=== PATIENT | female | born 2000 ===

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

== ENCOUNTER 2024-02-12 14:56 | Emergency (ER) | payer OTHER, SELFPAY ==
--- NOTE | ~2024-02-12 | XR_ITS ---
EXAMINATION: XR ANKLE, LEFT XR FOOT, LEFT CLINICAL INFORMATION: Pain after rolling ankle; question fracture. COMPARISON: None available. TECHNIQUE: AP, lateral, and mortise views of the left ankle. AP, lateral, and oblique views of the left foot. FINDINGS: Bony alignment and mineralization are normal. The ankle mortise is intact. No fracture or dislocation is seen. Boehler's angle is normal. There is no calcaneal spur. There is moderate soft tissue swelling, most pronounced adjacent to the lateral malleolus. XR/XR ankle LT min 3V IMPRESSION: 1. No fracture, dislocation or unusual degenerative change is seen. 2. There is moderate soft tissue swelling, most pronounced adjacent to the lateral malleolus. Electronically signed by: Bryan Edwards MD 02/12/2024 03:45 PM [facility]
--- NOTE | ~2024-02-12 | XR_ITS ---
EXAMINATION: XR ANKLE, LEFT XR FOOT, LEFT CLINICAL INFORMATION: Pain after rolling ankle; question fracture. COMPARISON: None available. TECHNIQUE: AP, lateral, and mortise views of the left ankle. AP, lateral, and oblique views of the left foot. FINDINGS: Bony alignment and mineralization are normal. The ankle mortise is intact. No fracture or dislocation is seen. Boehler's angle is normal. There is no calcaneal spur. There is moderate soft tissue swelling, most pronounced adjacent to the lateral malleolus. XR/XR foot LT 2V IMPRESSION: 1. No fracture, dislocation or unusual degenerative change is seen. 2. There is moderate soft tissue swelling, most pronounced adjacent to the lateral malleolus. Electronically signed by: Bryan Edwards MD 02/12/2024 03:45 PM [facility]
[2024-02-12 14:58] VITALS: BP 116/64; PULSE 78; RESP 16; TEMP 36.9; O2SAT 99; BMI 28.7
--- NOTE | 2024-02-12 15:02 | ED.GENADULT ---
HPI - General Adult General Chief complaint: Fall Stated complaint: lt ankle pain Time Seen by Provider: 02/12/24 15:18 Source: patient, RN notes reviewed and old records reviewed Mode of arrival: ambulatory History of Present Illness ED Provider: eMlita Arredondo PA-C [facility] narrative: 31-year-old female with no significant past medical history presenting to ED complaining of left ankle pain and swelling s/p slipping down 3 stairs [employer]. Reports twisting ankle and falling to ground, denies head trauma or LOC. has been ambulatory with pain since incident. Denies numbness, tingling, weakness, injury to other area Related Data Previous Rx's ?Medication ?Instructions ?Recorded ondansetron HCl 4 mg tablet 4 mg PO Q8H PRN nausea and 09/30/20 (Zofran) vomiting #10 tabs nqegpvf-oqcatioevhirq-gtfleyvw 250 1 tab PO Q4-6H PRN pain #14 tabs 12/24/20 mg-250 mg-65 mg tablet (Excedrin Extra Strength) diphenhydramine HCl 25 mg tablet 50 mg (2 x 25 mg) PO TID PRN 12/24/20 (Benadryl Allergy) nausea and vomiting #14 tabs metoclopramide HCl 10 mg tablet 10 mg PO Q6H PRN nausea and 12/24/20 (Reglan) vomiting #14 tabs azithromycin 250 mg tablet See Rx Instructions PO .COMPLEX #6 07/31/21 tabs Allergies Allergy/AdvReac Type Severity Reaction Status Date / Time No Known Allergies Allergy Verified 02/12/24 15:00 [No Known Allergies*] Review of Systems Review of Systems: Yes all other systems are reviewed and are negative Constitutional: Constitutional: Reports as per [facility] Past Medical History Attestation statement: The following information was validated with the patient. Source: old records reviewed Medical History Pre-eclampsia Social History Social History Alcohol intake: never Patient Tobacco Use Status: Never used Tobacco Advance Directives: No Advance Directives Information Provided: No Physical Exam ED Vital Signs: Vital Signs - 24 hr 02/12/24 14:58 02/12/24 16:15 02/12/24 16:21 Temperature 98.4 F 98.2 F 98.2 F Pulse Rate 78 76 76 Respiratory Rate 16 16 16 Blood Pressure 116/64 112/68 112/68 Pulse Oximetry 99 99 99 Oxygen Delivery Method Room Air Room Air Room Air BMI result Body Mass Index 28.7 Const General: cooperative, healthy appearing and no acute distress Orientation/consciousness: patient oriented x3 Limitations: no limitations HENMT Head: Yes normal to inspection and Yes atraumatic Ears: hearing grossly normal bilaterally General nose exam: Normal external nose present Face and sinus: Yes normal facial exam Eyes General: appearance normal, both eyes and all related structures EOM: EOMs intact bilaterally Neck Neck: Yes normal visual inspection and Yes no meningeal signs Resp Effort & Inspection: normal respiratory effort and no respiratory distress Cardio Rate: regular rate Skin Rashes: no rashes Wounds: no wounds Neuro General: patient oriented x3, tone normal and no meningeal signs Cranial nerves: Yes CN's II-XII intact bilaterally Gait exam (Neuro): Normal gait present Extrem Other: left ankle with lateral malleolar swelling. Diffusely tender to palpation. Limited ROM secondary to pain. Neurovascularly intact distally. No erythema/ warmth or crepitus. Knee nontender. Course Course Course Narrative: RME; 23-year-old female presents to the ED for falling down stairs and rolling ankle. patient states no head truama or loss of conscisouiness. xrays ordered 1555--XR ankle LT min 3V/XR foot LT 2V IMPRESSION: 1. No fracture, dislocation or unusual degenerative change is seen. 2. There is moderate soft tissue swelling, most pronounced adjacent to the lateral malleolus. >Aircast and crutches supplied. Results discussed with patient including worrisome signs and symptoms and strict return precautions, and when to return to the emergency department. They verbalized understanding and feel safe for discharge at this time. Medical Decision Making Medical Decision Making MDM Narrative: 31-year-old female with no significant past medical history presenting to ED complaining of left ankle pain and swelling s/p slipping down 3 stairs [employer]. On exam vital signs stable, NAD, nontoxic appearing, physical exam as noted above. Concern for sprain vs fracture. No evidence of septic joint / arthritis. Plan: X-rays Please refer to course for remaining clinical decision making, interpretation of labs/imaging results, and discussions with consultants and/or family members. Differential Diagnosis Differential Diagnoses: The differential diagnosis associated with the presentation includes As above Independent Interpretation I performed an independent interpretation of an: Plain X-Ray Radiology Impression Discussion of test interpretation with radiology: I have reviewed the radiologist's reading. External Record Review External record reviewed: Inpatient record, Office record, Outpatient record, Prior outpatient labs, Prior outpatient radiology, Primary care record and Outside ED record Tests considered The following testing was considered but not selected: As above Prescription Management I considered prescription management with: Pain Medication Social Determinants Patient?s care significantly limited by Social Determinants of Health including: Other Social Determinant of Health Discharge Plan Discharge Clinical Impression: Ankle sprain Patient Disposition: Home, Self-Care Instructions: Ankle Sprain (DC) Additional Instructions: you sprained her ankle. No fracture/break Wear Aircast for comfort and stability. Use crutches as needed. Bear weight as tolerated Ice and elevate take Tylenol and Motrin for pain/swelling Follow-up with your doctor If symptoms persist or worsen her pain is unbearable return to the emergency department Prescriptions: No Action ondansetron HCl [Zofran] 4 mg tablet 4 mg PO Q8H PRN (Reason: nausea and vomiting) Qty: 10 0RF metoclopramide HCl [Reglan] 10 mg tablet 10 mg PO Q6H PRN (Reason: nausea and vomiting) Qty: 14 0RF diphenhydramine HCl [Benadryl Allergy] 25 mg tablet 50 mg PO TID PRN (Reason: nausea and vomiting) Qty: 14 0RF Excedrin Extra Strength 250-250-65 mg tablet 1 tab PO Q4-6H PRN (Reason: pain) Qty: 14 0RF azithromycin 250 mg tablet See Rx Instructions PO .COMPLEX Qty: 6 0RF Rx Instructions: take 500 mg today (day 1), then 250 mg for 4 days (days 2-5) Referrals: [facility] [Primary Care Provider] - 5 days Stand Alone Forms: Work/School Release Interventions: ED Discharge Assessment Last Done: 02/12/24 16:21 Discharge Date/Time: 02/12/24 16:22 Print Language: Bermudian
--- NOTE | 2024-02-12 16:12 | MHC.EDTECH ---
At providers request this tech applied air cast to left ankle, and provided crutch training. Patient tolerated cast well.
[2024-02-12 16:15] VITALS: BP 112/68; PULSE 76; RESP 16; TEMP 36.8; O2SAT 99
--- NOTE | 2024-02-12 16:16 | PC.NURSE ---
xrays performed, air cast applied, crutch training performed, pt ambulatory with steady gait. vss
[2024-02-12 16:21] VITALS: BP 112/68; PULSE 76; RESP 16; TEMP 36.8; O2SAT 99
== END 2024-02-12 16:22 | disposition home or self-care (01) ==
PROVIDERS: Emergency Provider Emergency Medicine
DX: S93.402A Sprain of unspecified ligament of left ankle, initial encounter (principal); W10.9XXA Fall (on) (from) unspecified stairs and steps, initial encounter; M25.572 Pain in left ankle and joints of left foot; Y93.89 Activity, other specified; Y92.89 Other specified places as the place of occurrence of the external cause; Y99.8 Other external cause status
CPT/HCPCS: 73610; 73620; 99282; 99283